=== PATIENT | female | born 1955 | race Two or more races ===

== ENCOUNTER 2020-10-09 17:07 | Emergency (ER) | payer MEDICAID, OTHER ==
[~2020-10-09] VITALS: Ht 157.5 cm; Wt 79.8 kg
[2020-10-09 20:26] VITALS: BP 167/87
== END 2020-10-09 20:52 | disposition home or self-care (01) ==
LOC: ER 17:07
DX: S60.022A Contusion of left index finger without damage to nail, initial encounter (principal); J45.909 Unspecified asthma, uncomplicated; I10 Essential (primary) hypertension; E78.5 Hyperlipidemia, unspecified; Z90.49 Acquired absence of other specified parts of digestive tract; X58.XXXA Exposure to other specified factors, initial encounter; Y93.89 Activity, other specified; Y92.89 Other specified places as the place of occurrence of the external cause; Y99.8 Other external cause status
CPT/HCPCS: 73140

== ENCOUNTER 2020-11-07 14:12 | Emergency (ER) | payer MEDICAID ==
[~2020-11-07] VITALS: Ht 157.5 cm; Wt 77.1 kg
[2020-11-07 16:01] VITALS: BP 146/75
== END 2020-11-07 18:00 | disposition home or self-care (01) ==
LOC: ER 14:12
DX: R21 Rash and other nonspecific skin eruption (principal); L08.9 Local infection of the skin and subcutaneous tissue, unspecified; J45.909 Unspecified asthma, uncomplicated; E78.5 Hyperlipidemia, unspecified; I10 Essential (primary) hypertension; Z90.49 Acquired absence of other specified parts of digestive tract; Z98.890 Other specified postprocedural states
CPT/HCPCS: 76642